=== PATIENT | male | born 1975 | race Caucasian/White ===

== ENCOUNTER 2019-10-20 08:57 | Emergency (ER) | payer SELFPAY ==
--- NOTE | 2019-10-20 09:30 | ER Document Report ---
ED Medical Screen (RME) - General Chief Complaint: Abnormal Lab Results Stated Complaint: ABNORMAL LABS Time Seen by Provider: 10/20/19 09:21 Mode of Arrival: Ambulatory Information source: Patient Notes: Patient is a 44-year-old male with history of hypertension presenting to the emergency department chief complaint of abnormally low hemoglobin. Patient had labs drawn yesterday at [facility] and he had a hemoglobin of 6.7. Labs drawn earlier in the week were with a hemoglobin of 7. Patient feels very faint, pale, lack of energy. Denies any obvious rectal bleeding. Lung sounds clear and equal bilaterally. Patient alert, oriented, no acute distress noted. Skin pale. I have greeted and performed a rapid initial assessment of this patient. A comprehensive ED assessment and evaluation of the patient, analysis of test results and completion of the medical decision making process will be conducted by additional ED providers. I have specifically instructed the patient or family members with the patient to immediately return to any nursing staff should anything change in the patient's condition or with their chief complaint. TRAVEL OUTSIDE OF THE [place] IN LAST 30 DAYS: No - Related Data Allergies/Adverse Reactions: No Known Allergies Allergy (Verified 10/20/19 09:16) Home Medications: lisinopril, multivitamin Past Medical History - Past Medical History Cardiac Medical History: Reports: Hx Hypertension Physical Exam - Vital signs Vitals: Temp Pulse Resp BP Pulse Ox 99.0 F 88 16 140/73 H 100 10/20/19 09:04 10/20/19 09:04 10/20/19 09:04 10/20/19 09:04 10/20/19 09:04 Course - Vital Signs Vital signs: Temp Pulse Resp BP Pulse Ox 99.0 F 88 16 140/73 H 100 10/20/19 09:04 10/20/19 09:04 10/20/19 09:04 10/20/19 09:04 10/20/19 09:04
--- NOTE | 2019-10-20 10:09 | ER Document Report ---
ED General - General Chief Complaint: Abnormal Lab Results Stated Complaint: ABNORMAL LABS Time Seen by Provider: 10/20/19 09:21 Primary Care Provider: MYA RODRIGUES FNP-C [Primary Care Provider] - Follow up as needed Mode of Arrival: Ambulatory Information source: Patient, Relative Notes: Patient is a 44-year-old male presenting to the emergency department chief complaint of generalized weakness and shortness of breath for several weeks patient states last time this happened he was informed that he was anemic. Patient states he was supposed to have an upper and lower scope of his gastrointestinal tract but was unable because of insurance issues. Patient states that he was contacted by his family physician's office and informed that yesterday's blood work demonstrated a hemoglobin of 6.7. At time of presentation patient does appear to be pallorous but complains of no pain no nausea vomiting cough or cold type symptoms. Patient does report continued tobacco abuse as well as a sixpack of alcohol daily. TRAVEL OUTSIDE OF THE [place] IN LAST 30 DAYS: No - HPI Onset: Last week Onset/Duration: Gradual, Worse Quality of pain: No pain Severity: None Pain Level: Denies Associated symptoms: Shortness of breath, Weakness Exacerbated by: Movement, Walking Relieved by: Denies Similar symptoms previously: Yes Recently seen / treated by doctor: Yes - Related Data Allergies/Adverse Reactions: No Known Allergies Allergy (Verified 10/20/19 09:16) Home Medications: lisinopril, multivitamin Past Medical History - General Information source: Patient - Social History Smoking Status: Current Every Day Smoker Cigarette use (# per day): Yes Smoking Education Provided: Yes Frequency of alcohol use: 6 pack daily Drug Abuse: None Lives with: Spouse/Significant other Family History: Reviewed & Not Pertinent Patient has suicidal ideation: No Patient has homicidal ideation: No - Past Medical History Cardiac Medical History: Reports: Hx Hypertension Surgical Hx: Negative Review of Systems - Review of Systems Notes: REVIEW OF SYSTEMS: CONSTITUTIONAL : Denies fever, chills, or sweats. Denies recent illness. EENT: Denies eye, ear, throat, or mouth pain or symptoms. Denies nasal or sinus congestion. CARDIOVASCULAR: Denies chest pain. RESPIRATORY: Denies cough, cold, or chest congestion. Denies shortness of breath, difficulty breathing, or wheezing. GASTROINTESTINAL: Denies abdominal pain. Denies nausea, vomiting. Denies constipation. Patient does report dark stools frequent hemorrhoids and frequent diarrhea. GENITOURINARY: Denies difficulty urinating, painful urination, burning, frequency, or blood in urine. MUSCULOSKELETAL: Denies neck or back pain or joint pain or swelling. SKIN: Denies rash or skin lesions. HEMATOLOGIC : Denies easy bruising or bleeding. NEUROLOGICAL: Denies altered mental status or loss of consciousness. Denies headache. Denies weakness or paralysis or loss of use of either side. Denies problems with gait or speech. Denies sensory or motor loss. PSYCHIATRIC: Denies suicidal or homicidal ideations 10 Systems are negative unless otherwise specified above Physical Exam - Vital signs Vitals: Temp Pulse Resp BP Pulse Ox 99.0 F 88 16 140/73 H 100 10/20/19 09:04 10/20/19 09:04 10/20/19 09:04 10/20/19 09:04 10/20/19 09:04 - Notes Notes: PHYSICAL EXAMINATION: GENERAL: Well-appearing, well-nourished and in no acute distress. HEAD: Atraumatic, normocephalic. EYES: Pupils equal round and reactive to light, extraocular movements intact, sclera anicteric, conjunctiva are normal. ENT: nares patent, oropharynx clear without exudates. Moist mucous membranes. NECK: Normal range of motion, supple without lymphadenopathy, no appreciable JVD LUNGS: Lungs clear to auscultation bilaterally and equal. No wheezes rales or rhonchi. HEART: Regular rate and rhythm without murmurs ABDOMEN: Soft, nontender, normal bowel sounds. No guarding, no rebound. No masses appreciated. EXTREMITIES: Active full range of motion, no pitting or edema. No cyanosis. 2+ pulses x4 NEUROLOGICAL: No focal neurological deficits. Moves all extremities spont aneously and on command. SKIN: Warm, Dry, and intact. Normal turgor, no rashes or lesions noted. However patient is moderately pallorous Course - Re-evaluation Re-evalutation: 10/20/19 12:13 I did discuss with the patient the laboratory value of hemoglobin today of 7.3 and the need for blood transfusion. Patient was agreeable with same. Patient will be crossmatched for 2 units of packed red blood cells. Hemoccult was sent to lab. 10/20/19 19:15 Patient has been reevaluated multiple times while in the emergency department he has been maintained on a petrographer. Patient has received 2 units of packed red blood cells. At this time patient is being reevaluated for hemoglobin and hematocrit levels. Patient has had no complaints and no signs of blood transfusion reactions. 10/20/19 20:23 Repeat hemoglobin 10.1 hematocrit 30.2. Patient will be discharged home recommended to follow-up with gastroenterology in the local area. Patient is stable at time of discharge. - Vital Signs Vital signs: Temp Pulse Resp BP Pulse Ox 98.6 F 72 19 124/78 98 10/20/19 18:01 10/20/19 18:01 10/20/19 18:01 10/20/19 18:01 10/20/19 18:01 - Laboratory Result Diagrams: 10/20/19 09:50 10/20/19 09:50 Laboratory results interpreted by me: 10/20/19 10/20/19 10/20/19 09:50 09:50 09:50 RBC 3.07 L Hgb 7.3 L Hct 22.6 L MCV 73 L MCH 23.8 L RDW 20.2 H Plt Count 522 H Sodium 135.9 L Crossmatch See Detail Discharge - Discharge Clinical Impression: Anemia Qualifiers: Anemia type: iron deficiency Iron deficiency anemia type: chronic blood loss Qualified Code(s): D50.0 - Iron deficiency anemia secondary to blood loss (chronic) Condition: Stable Disposition: HOME, SELF-CARE Additional Instructions: Anemia You have been found to have a significant anemia (a lower than normal amount of red blood cells). Anemia can be due to iron deficiency, vitamin deficiency, abnormal bleeding, or internal diseases. Usually, further tests are necessary to find the exact cause of the anemia. The most common cause of anemia is iron deficiency, often brought on by blood loss. This can be treated with iron supplements. If this appears to be the most likely cause, iron tablets may be prescribed even before all tests are complete. Contact the doctor at once if you note black or tarry-looking stools, bloody vomiting, shortness of breath, chest pain, or faintness. Forms: Return to Work Referrals: MYA RODRIGUES, [employer] [facility] [employer] [Primary Care Provider] - Follow up as needed
[2019-10-20 10:18] LABS: INTERNATIONAL RATION (INR) 0.96; PROTHROMBIN TIME 12.8 SEC (11.4-15.4)
[2019-10-20 10:25] LABS: HEMATOCRIT 22.6 % (37.9-51.0); MEAN CORPUSCULAR HEMOGLOBIN 23.8 pg (27.0-33.4); MEAN CORPUSCULAR HGB CONC 32.5 g/dL (32.0-36.0); MEAN CORPUSCULAR VOLUME 73 fl (80-97); PLATELET COUNT 522 10^3/uL (150-450); RED BLOOD COUNT 3.07 10^6/uL (4.35-5.55); RED CELL DISTRIBUTION WIDTH 20.2 % (11.5-14.0); WHITE BLOOD COUNT 5.7 10^3/uL (4.0-10.5)
[2019-10-20 10:31] LABS: ALBUMIN 4.4 g/dL (3.5-5.0); ALKALINE PHOSPHATASE 58 U/L (38-126); ANION GAP 12 (5-19); ASPARTATE AMINO TRANSFERASE 25 U/L (17-59); BILIRUBIN,DIRECT 0.2 mg/dL (0.0-0.4); BILIRUBIN,TOTAL 0.2 mg/dL (0.2-1.3); BLOOD UREA NITROGEN 12 mg/dL (7-20); CALCIUM 9.5 mg/dL (8.4-10.2); CARBON DIOXIDE 24 mmol/L (22-30); CHLORIDE 100 mmol/L (98-107); GLUCOSE 91 mg/dL (75-110); POTASSIUM 4.6 mmol/L (3.6-5.0); TOTAL PROTEIN 7.3 g/dL (6.3-8.2)
[2019-10-20 10:38] LABS: HEMOGLOBIN 7.3 g/dL (13.5-17.0)
[2019-10-20 10:45] LABS: ABSOLUTE MONOCYTES # (MANUAL) 0.2 10^3/uL (0.1-1.4); BASOPHILS % (MANUAL) 1 % (0-2); EOSINOPHILS % (MANUAL) 2 % (0-6); LYMPHOCYTES % (MANUAL) 15 % (13-45); MONOCYTES % (MANUAL) 4 % (3-13); SEGMENTED NEUTROPHILS % (MAN) 75 % (42-78); TOTAL CELLS COUNTED 100
[2019-10-20 10:48] LABS: ANISOCYTOSIS 2+; HYPOCHROMASIA 2+; PLATELET COMMENT INCREASED; POIKILOCYTOSIS SLIGHT; POLYCHROMASIA 1+; TARGET CELLS SLIGHT; TEAR DROP CELLS SLIGHT
[2019-10-20] MEDS ORDERED: NORMAL SALINE 250 ML IV PRN ×2 (11:50)
--- NOTE | 2019-10-20 19:02 | EKG REPORT ---
SEVERITY:- NORMAL ECG - SINUS RHYTHM : Confirmed by: Lobo Osorio 20-Oct-2019 19:01:38
[2019-10-20 20:01] LABS: HEMATOCRIT 30.2 % (37.9-51.0); MEAN CORPUSCULAR HGB CONC 33.6 g/dL (32.0-36.0); PLATELET COUNT 435 10^3/uL (150-450); RED BLOOD COUNT 3.91 10^6/uL (4.35-5.55); RED CELL DISTRIBUTION WIDTH 23.1 % (11.5-14.0); WHITE BLOOD COUNT 9.6 10^3/uL (4.0-10.5)
[2019-10-20 20:04] LABS: HEMOGLOBIN 10.1 g/dL (13.5-17.0); MEAN CORPUSCULAR VOLUME 77 fl (80-97)
[2019-10-20 20:21] LABS: ABSOLUTE LYMPHOCYTES# (MANUAL) 2.6 10^3/uL (0.5-4.7); ABSOLUTE MONOCYTES # (MANUAL) 0.3 10^3/uL (0.1-1.4); BASOPHILS % (MANUAL) 0 % (0-2); EOSINOPHILS % (MANUAL) 0 % (0-6); LYMPHOCYTES % (MANUAL) 27 % (13-45); MONOCYTES % (MANUAL) 3 % (3-13); SEGMENTED NEUTROPHILS % (MAN) 70 % (42-78); TOTAL CELLS COUNTED 100
[2019-10-20 20:24] LABS: ANISOCYTOSIS 3+; HYPOCHROMASIA SLIGHT; OVALOCYTES SLIGHT; PLATELET COMMENT ADEQUATE; POIKILOCYTOSIS SLIGHT; TARGET CELLS SLIGHT
[2019-10-20 20:25] LABS: BURR CELLS SLIGHT
[2019-10-20 21:12] VITALS: BP 140/78
== END 2019-10-20 21:12 | disposition home or self-care (01) ==
LOC: ER 08:57
DX: D50.0 Iron deficiency anemia secondary to blood loss (chronic) (principal); R53.1 Weakness; R06.02 Shortness of breath; F17.210 Nicotine dependence, cigarettes, uncomplicated; I10 Essential (primary) hypertension
CPT/HCPCS: 93005; 99283; 96360; 96361; 86900; 86901; 36415; 36430; 86850; 85025; 85610; 80053; 86920; 93010; P9016; J7050